=== PATIENT | male | born 1965 | race Caucasian/White ===

== ENCOUNTER → 2020-06-18 | Outpatient (CLI) | payer OTHER | LOC: HEART 5 06-12 09:00 | DX: E11.65 Type 2 diabetes mellitus with hyperglycemia (principal); I25.6 Silent myocardial ischemia; I10 Essential (primary) hypertension; I49.3 Ventricular premature depolarization; R06.02 Shortness of breath | CPT/HCPCS: 78452; A9502; J2785 ==